=== PATIENT | female | born 1965 | race Asian ===

== ENCOUNTER 2022-09-05 20:04 | Inpatient (IN) | payer MEDICAID, OTHER ==
[~2022-09-05] VITALS: Ht 152.4 cm; Wt 58.8 kg
[2022-09-05] MEDS ORDERED: NA P133E4 PR (20:36)
[2022-09-05] MEDS ORDERED: FAMO20 PO (20:36)
[2022-09-05] MEDS ORDERED: CARV6 PO (20:36)
[2022-09-05] MEDS ORDERED: CHOL25TA4 PO (20:36)
[2022-09-05] MEDS ORDERED: ASPI-1450 PO (20:36)
[2022-09-05] MEDS ORDERED: MULT-412 PO (20:36)
[2022-09-05] MEDS ORDERED: ONDA-104 PO (20:36)
[2022-09-05] MEDS ORDERED: BISA10SU11 PR (20:36)
[2022-09-05 21:37] LABS: BASOPHILS % (AUTO) 0.9 % (0.0-2.0); EOSINOPHILS % (AUTO) 1.4 % (1.0-6.0); HEMATOCRIT 30.1 % (36-46); HEMOGLOBIN 9.3 g/dL (12.0-16.0); LYMPHOCYTES # (AUTO) 1.4 K/uL (1.0-4.8); LYMPHOCYTES % (AUTO) 15.2 % (22.0-44.0); MEAN CORPUSCULAR HGB CONC 30.9 G/dL (31.0-37.0); MEAN CORPUSCULAR VOLUME 74 fL (80-100); MONOCYTES % (AUTO) 10.3 % (2.0-9.0); NEUTROPHILS # (AUTO) 6.7 K/uL (1.8-7.7); NEUTROPHILS % (AUTO) 72.2 % (40.0-70.0); PLATELET COUNT (AUTO) 341 K/uL (150-450); RED BLOOD CELL COUNT(AUTO) 4.05 MIL/uL (4.00-5.20); RED CELL DISTRIBUTION WIDTH 21.1 % (11.5-14.5)
[2022-09-05 21:43] LABS: ANION GAP 7 mmol/L (8-16); CALCIUM, TOTAL 9.2 mg/dL (8.8-10.5); CARBON DIOXIDE 30 mmol/L (22-29); CHLORIDE 104 mmol/L (98-107); CREATININE 0.79 mg/dL (0.60-1.30); GLOMERULAR FILTR. RATE CALC > 60 mL/min (>60); GLUCOSE,RANDOM 134 mg/dL (70-110); POTASSIUM 4.5 mmol/L (3.5-5.1); SODIUM SERUM 141 mmol/L (136-145); UREA NITROGEN, BLOOD 17 mg/dL (7-18)
[2022-09-05 21:48] LABS: ALANINE AMINOTRANSFERASE 24 U/L (12-78); ALBUMIN 3.1 g/dL (3.4-5.0); ALKALINE PHOSPHATASE 271 U/L (46-116); ASPARTATE AMINOTRANSFERASE 35 U/L (15-37); BILIRUBIN,TOTAL 0.5 mg/dL (0.1-1.0); LIPASE 100 U/L (73-393); TOTAL PROTEIN, SERUM 7.4 g/dL (6.4-8.2)
[2022-09-06] MEDS ORDERED: ASPIRIN 81 MG CHEWABLE TABLET PO ONE (02:00)
[2022-09-06] MEDS ORDERED: ONDANSETRON HCL 4 MG/2 ML VIAL IVP PRN ×2 (02:00→02:45)
[2022-09-06] MEDS ORDERED: 0.9% SODIUM CHLORIDE 10 ML SYRINGE IVP PRN (02:00)
[2022-09-06 02:27] VITALS: BP 139/70
[2022-09-06] MEDS ORDERED: MORPHINE SULFATE 2 MG/ML SYRINGE IVP PRN (02:45)
[2022-09-06] MEDS ORDERED: RINGERS SOLUTION,LACTATED 1,000 ML IV SCH (02:45)
[2022-09-06 07:37] VITALS: BP 136/71
[2022-09-06] MEDS ORDERED: HEPARIN SODIUM,PORCINE 5,000 UNITS/ML VIAL SQ SCH (08:00)
[2022-09-06 11:26] VITALS: BP 140/73
[2022-09-07] MEDS ORDERED: ASPIRIN 81 MG CHEWABLE TABLET PO SCH (09:00)
== END 2022-09-06 14:59 | disposition left against medical advice (07) | DRG 247 ==
LOC: EMS 20:08 → 5S 09-06 01:59
PROVIDERS: ADMIT Internal Medicine; ATTEND Internal Medicine
DX: K56.609 Unspecified intestinal obstruction, unspecified as to partial versus complete obstruction (principal); R18.8 Other ascites; I50.9 Heart failure, unspecified; I11.0 Hypertensive heart disease with heart failure; R10.9 Unspecified abdominal pain; E78.00 Pure hypercholesterolemia, unspecified; I25.10 Atherosclerotic heart disease of native coronary artery without angina pectoris; R77.8 Other specified abnormalities of plasma proteins; Z95.2 Presence of prosthetic heart valve; Z88.6 Allergy status to analgesic agent; Z95.1 Presence of aortocoronary bypass graft; Z79.899 Other long term (current) drug therapy; Z88.8 Allergy status to other drugs, medicaments and biological substances
CPT/HCPCS: 71045; 74176; 76705; 80053; 83605; 83690; 84484; 85025; 87081; 93005; 93306; 99285; J1644; J7120; 36415-L1; 36415-TC